=== PATIENT | female | born 2000 | race Hispanic/Latino ===

== ENCOUNTER 2021-10-23 07:12 | Emergency (ER) | payer OTHER, SELFPAY ==
[2021-10-23] MEDS ORDERED: HYDROCODONE/APAP 10/325 TAB ONE (08:43)
[2021-10-23] MEDS ORDERED: KETOROLAC 30 MG/ML INJ ONE (08:43)
--- NOTE | 2021-10-23 09:11 | ER ---
Nurse's Notes [facility] Name: Zeny Brooks Age: 21 yrs Sex: Female : 2000 Arrival Date: 10/23/2021 Time: 07:14 Bed 11 Private MD: Nuria Carmona Diagnosis: Low back pain;Strain of muscle and tendon of back wall of thorax Presentation: 10/23 07:31 Chief complaint: Patient states: having really bad back pains in middle of spine to rib iw cage on left side , denies injury , denies urinary symptoms, pain maribel she sits up straight. Coronavirus screen: At this time, the client does not indicate any symptoms associated with coronavirus-19. Ebola Screen: Patient negative for fever greater than or equal to 101.5 degrees Fahrenheit, and additional compatible Ebola Virus Disease symptoms Patient denies exposure to infectious person. Patient denies travel to an Ebola-affected area in the 21 days before illness onset. No symptoms or risks identified at this time. Initial Sepsis Screen: Does the patient meet any 2 criteria? No. Patient's initial sepsis screen is negative. Does the patient have a suspected source of infection? No. Patient's initial sepsis screen is negative. Risk Assessment: Do you want to hurt yourself or someone else? Patient reports no desire to harm self or others. Onset of symptoms was October 21, 2021. 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 Vital Signs: 07:35 BP 130 / 90; Pulse 83; Resp 16; Temp 97.9; Pulse Ox 98% on R/A; Weight 89.36 kg; Height iw 5 ft. 4 in. (162.56 cm); Pain 5/10; 07:35 Body Mass Index 33.81 (89.36 kg, 162.56 cm) ED Course: 07:14 Patient arrived in ED. as 07:14 Nuria Carmona is Private Physician. as 07:23 Shawn Reyes MD is Attending Physician. johnny 07:33 Triage completed. iw 07:35 Arm band placed on. iw 08:37 Alla Avalos, RN is Primary Nurse. iw 08:49 Lumbar Spine (3 Views) XRAY In Process Unspecified. EDMS 09:11 Nuria Carmona is Referral Physician. johnny Administered Medications: 09:04 Drug: TORadol (ketorolac) 60 mg Route: IM; Site: right deltoid; iw 09:30 Follow up: Response: No adverse reaction iw 09:04 Drug: [place] (HYDROcodone-acetaminophen) 10 mg-325 mg 1 tabs Route: PO; iw 09:30 Follow up: Response: No adverse reaction iw Outcome: 09:11 Discharge ordered by . johnny 09:45 Patient left the ED. iw Signatures: Dispatcher [employer] EDMS Shawn Reyes MD MD cha Martinez, Amelia as Alla Avalos, RN RN iw Corrections: (The following items were deleted from the chart) 07:35 07:33 PMHx: None; iw iw 07:35 07:33 PSHx: brain surgery to releive seizures; iw iw
--- NOTE | 2021-10-23 09:11 | EDPHYS ---
Physician Documentation [facility] Name: Zeny Brooks Age: 21 yrs Sex: Female : 2000 Arrival Date: 10/23/2021 Time: 07:14 Bed 11 Private MD: Nuria Carmona ED Physician Shawn Reyes HPI: 10/23 08:14 This 21 yrs old Female presents to ER via Ambulatory with complaints of Back johnny Pain. 08:14 The patient presents with pain that is acute, with no known mechanism of injury, and johnny decreased range of motion. The symptoms are located in the left low back and left mid back. Onset: The symptoms/episode began/occurred 3 day(s) ago. The pain does not radiate. Associated signs and symptoms: The patient has no apparent associated signs or symptoms. The problem was sustained from unknown cause. Modifying factors: The patient symptoms are alleviated by remaining still. Severity of symptoms: At their worst the symptoms were moderate, in the emergency department the symptoms are unchanged. The patient has not experienced similar symptoms in the past. 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 ROS: 08:14 Constitutional: Negative for fever, chills, and weight loss, Eyes: Negative for injury, johnny pain, redness, and discharge, ENT: Negative for injury, pain, and discharge, Neck: Negative for injury, pain, and swelling, Cardiovascular: Negative for chest pain, palpitations, and edema, Respiratory: Negative for shortness of breath, cough, wheezing, and pleuritic chest pain, Abdomen/GI: Negative for abdominal pain, nausea, vomiting, diarrhea, and constipation, : Negative for injury, bleeding, discharge, and swelling, MS/Extremity: Negative for injury and deformity, Skin: Negative for injury, rash, and discoloration, Neuro: Negative for headache, weakness, numbness, tingling, and seizure, Psych: Negative for depression, anxiety, suicide ideation, homicidal ideation, and hallucinations, Allergy/Immunology: Negative for hives, rash, and allergies, Endocrine: Negative for neck swelling, polydipsia, polyuria, polyphagia, and marked weight changes, Hematologic/Lymphatic: Negative for swollen nodes, abnormal bleeding, and unusual bruising. 08:14 Back: Positive for decreased range of motion, pain at rest, pain with movement, flank pain. Exam: 08:14 Constitutional: This is a well developed, well nourished patient who is awake, alert, johnny and in no acute distress. Head/Face: Normocephalic, atraumatic. Eyes: Pupils equal round and reactive to light, extra-ocular motions intact. Lids and lashes normal. Conjunctiva and sclera are non-icteric and not injected. Cornea within normal limits. Periorbital areas with no swelling, redness, or edema. ENT: Nares patent. No nasal discharge, no septal abnormalities noted. Tympanic membranes are normal and external auditory canals are clear. Oropharynx with no redness, swelling, or masses, exudates, or evidence of obstruction, uvula midline. Mucous membranes moist. Neck: Trachea midline, no thyromegaly or masses palpated, and no cervical lymphadenopathy. Supple, full range of motion without nuchal rigidity, or vertebral point tenderness. No Meningismus. Chest/axilla: Normal chest wall appearance and motion. Nontender with no deformity. No lesions are appreciated. Cardiovascular: Regular rate and rhythm with a normal S1 and S2. No gallops, murmurs, or rubs. Normal PMI, no JVD. No pulse deficits. Respiratory: Lungs have equal breath sounds bilaterally, clear to auscultation and percussion. No rales, rhonchi or wheezes noted. No increased work of breathing, no retractions or nasal flaring. Abdomen/GI: Soft, non-tender, with normal bowel sounds. No distension or tympany. No guarding or rebound. No evidence of tenderness throughout. Pelvic Exam: Normal external genitalia. Speculum exam with closed cervical os, no discharge or bleeding noted. Bimanual exam with normal adnexa, no adnexal or cervical motion tenderness. Normal uterus. Skin: Warm, dry with normal turgor. Normal color with no rashes, no lesions, and no evidence of cellulitis. MS/ Extremity: Pulses equal, no cyanosis. Neurovascular intact. Full, normal range of motion. Neuro: Awake and alert, GCS 15, oriented to person, place, time, and situation. Cranial nerves II-XII grossly intact. Motor strength 5/5 in all extremities. Sensory grossly intact. Cerebellar exam normal. Normal gait. Psych: Awake, alert, with orientation to person, place and time. Behavior, mood, and affect are within normal limits. 08:14 Back: ROM is painful, with rotation to the right, with rotation to the left, with flexion, with extension, normal spinal alignment noted, CVA tenderness, is absent, muscle spasm, is appreciated in the left low back and left mid back. 08:18 Musculoskeletal/extremity: Exam is negative for DVT Exam: No signs of deep vein johnny thrombosis. no pain, no swelling, no tenderness, negative Homans' sign noted on exam, no appreciated bluish discoloration, no erythema, no increased warmth. Vital Signs: 07:35 BP 130 / 90; Pulse 83; Resp 16; Temp 97.9; Pulse Ox 98% on R/A; Weight 89.36 kg; Height iw 5 ft. 4 in. (162.56 cm); Pain 5/10; 07:35 Body Mass Index 33.81 (89.36 kg, 162.56 cm) iw MDM: 07:23 Patient medically screened. johnny 08:02 Patient medically screened. [facility] 08:18 Differential diagnosis: Fatigue Obesity ruptured disc, Scoliosis Ureterolithiasis. Data johnny reviewed: vital signs, nurses notes, lab test result(s), radiologic studies, plain films. Data interpreted: groundwater monitoring technician: not applicable for this patient encounter. rate is 83 beats/min, Pulse oximetry: on room air is 98 %. Test interpretation: by ED physician or midlevel provider: plain radiologic studies. Counseling: I had a detailed discussion with the patient and/or guardian regarding: lab results, radiology results, the need for outpatient follow up, for definitive care, a family practitioner. 10/23 09:18 Order name: Urine Dipstick-Ancillary [facility] 10/23 08:19 Order name: Lumbar Spine (3 Views) XRAY [facility] 10/23 08:11 Order name: Urine Dipstick-Ancillary (obtain specimen); Complete Time: 09:17 [facility] 10/23 08:11 Order name: Urine Test (obtain specimen); Complete Time: 09:16 [facility] Administered Medications: 09:04 Drug: TORadol (ketorolac) 60 mg Route: IM; Site: right deltoid; iw 09:30 Follow up: Response: No adverse reaction iw 09:04 Drug: [place] (HYDROcodone-acetaminophen) 10 mg-325 mg 1 tabs Route: PO; iw 09:30 Follow up: Response: No adverse reaction iw Disposition Summary: 10/23/21 09:11 Discharge Ordered Location: Home johnny Problem: new johnny Symptoms: have improved johnny Condition: Stable johnny Diagnosis - Low back pain johnny - Strain of muscle and tendon of back wall of thorax johnny Followup: johnny - With: - When: 2 - 3 days - Reason: Recheck today's complaints, Continuance of care, Re-evaluation by your physician Discharge Instructions: - Discharge Summary Sheet johnny - Acute Back Pain, Adult johnny - Musculoskeletal Pain johnny Forms: - Medication Reconciliation Form johnny - Thank You Letter johnny - Antibiotic Education johnny - Prescription Opioid Use johnny Prescriptions: - Ibuprofen 600 mg Oral Tablet - take 1 tablet by ORAL route every 6 hours As needed take with food; 30 tablet; johnny Refills: 0, Product Selection Permitted - Cyclobenzaprine 5 mg Oral Tablet - take 1 tablet by ORAL route 3 times per day As needed; 15 tablet; Refills: 0, johnny Product Selection Permitted - Tylenol-Codeine #3 300 mg-30 mg Oral - take 2 tablet by ORAL route every 6 hours; 20 tablet; Refills: 0, Product [facility] Selection Permitted Signatures: Dispatcher [employer] Shawn Warren MD MD cha Williams, Irene, RN RN iw Corrections: (The following items were deleted from the chart) 07:35 07:33 PMHx: None; iw iw 07:35 07:33 PSHx: brain surgery to releive seizures; iw iw
[2021-10-23 09:18] LABS: Urine Blood Negative (Negative); Urine Glucose Negative (Negative); Urine Protein Negative (Negative); Urine Specific Gravity 1.025 (1.005-1.030)
--- NOTE | 2021-10-23 09:42 | RAD REPORT ---
EXAM DESCRIPTION: RAD - Lumbar Spine 3 Views - 10/23/2021 8:48 am CLINICAL HISTORY: PAIN COMPARISON: No comparisons FINDINGS: A three-view lumbar spine examination was performed. Lumbar bodies are normal in height and alignment. No fracture or acute bony process seen. No disc spa ce narrowing. No other significant findings. No pars defects identified. No SI joint abnormality. IMPRESSION: Negative Lumbar Spine examination. Concerns for disc herniation, central canal abnormality or occult bone process could be addressed wit h follow-up outpatient MRI lumbar spine exam.
[2021-10-23 09:51] VITALS: BP 130/90; TEMP 97.9; O2SAT 98
== END 2021-10-23 09:45 | disposition home or self-care (01) ==
LOC: ER 07:12
DX: S29.012A Strain of muscle and tendon of back wall of thorax, initial encounter (principal); Z88.0 Allergy status to penicillin
CPT/HCPCS: 72100; 81003; 96372; 99283

== ENCOUNTER 2022-02-13 23:39 | Emergency (ER) | payer OTHER, SELFPAY ==
--- NOTE | 2022-02-14 00:58 | ER ---
Nurse's Notes [facility] Name: Zeny Brooks Age: 21 yrs Sex: Female : 2000 Arrival Date: 02/13/2022 Time: 23:43 Bed Waiting Private MD: Diagnosis: Acute upper respiratory infection, unspecified Presentation: 02/14 00:06 Chief complaint: Patient states: I got sent home from work because of my allergies. bm7 They said they want me tested for COVID because one of the other girls at work has been out sick with it. Coronavirus screen: Client presents with at least one sign or symptom that may indicate coronavirus-19. Standard/surgical mask placed on the client. Ebola Screen: No symptoms or risks identified at this time. Initial Sepsis Screen: Does the patient meet any 2 criteria? No. Patient's initial sepsis screen is negative. Does the patient have a suspected source of infection? No. Patient's initial sepsis screen is negative. Risk Assessment: Do you want to hurt yourself or someone else? Patient reports no desire to harm self or others. Onset of symptoms is unknown. 00:06 Method Of Arrival: Ambulatory 7 00:06 Acuity: SANDRA 4 bm7 Triage Assessment: 00:07 General: Appears in no apparent distress. comfortable, Behavior is calm, cooperative, bm7 appropriate for age. Pain: Denies pain. EENT: Reports nasal congestion nasal discharge. Neuro: No deficits noted. Cardiovascular: No deficits noted. Respiratory: Reports cough that is pain with cough Denies shortness of breath. GI: No deficits noted. No signs and/or symptoms were reported involving the gastrointestinal system. : No deficits noted. No signs and/or symptoms were reported regarding the genitourinary system. Derm: No deficits noted. No signs and/or symptoms reported regarding the dermatologic system. Parent/caregiver reports the patient having. Musculoskeletal: No deficits noted. No signs and/or symptoms reported regarding the musculoskeletal system. 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 - Social history:: Smoking status: Patient denies any tobacco usage or history of. Screenin:06 Abuse screen: Denies threats or abuse. Nutritional screening: No deficits noted. bb Tuberculosis screening: No symptoms or risk factors identified. Fall Risk None identified. Assessment: 01:06 General: Appears in no apparent distress. uncomfortable, Behavior is calm, cooperative. bb Pain: Complains of pain in chest Pain does not radiate. Pain began gradually. Neuro: Level of Consciousness is awake, alert, obeys commands, Oriented to person, place, time, situation. Cardiovascular: Capillary refill < 3 seconds Patient's skin is warm and dry. Respiratory: Respiratory effort is even, unlabored, Respiratory pattern is regular. GI: No signs and/or symptoms were reported involving the gastrointestinal system. EENT: Reports nasal congestion nasal discharge. Musculoskeletal: Circulation, motion, and sensation intact. Vital Signs: 00:06 BP 125 / 97; Pulse 81; Resp 16; Temp 98.1(TE); Pulse Ox 100% on R/A; Weight 86.18 kg bm7 (R); Height 5 ft. 4 in. (162.56 cm); Pain 3; 00:06 Body Mass Index 32.61 (86.18 kg, 162.56 cm) bm7 ED Course: 02/13 23:43 Patient arrived in ED. ja2 23:51 Alisa Nugent [facility]-C [facility]. snw 23:51 Eloy Shipley MD is Attending Physician. snw 02/14 00:07 Triage completed. bm7 00:07 Arm band placed on right wrist. bm7 01:06 Patient has correct armband on for positive identification. pt discharged from [facility]. bb 01:06 No provider procedures requiring assistance completed. Patient did not have IV access bb during this emergency room visit. Patient maintains SpO2 saturation greater than 95% on room air. Administered Medications: No medications were administered Medication: 01:06 VIS not applicable for this client. bb Outcome: 00:58 Discharge ordered by . snw 01:06 Discharged to home ambulatory. bb 01:06 Condition: stable 01:06 Discharge instructions given to patient, Instructed on discharge instructions, follow up and referral plans. medication usage, Demonstrated understanding of instructions, follow-up care, medications, Prescriptions given X 3. 01:08 Patient left the ED. bb Signatures: Alisa Nugent, MELVIN-C CONSUMER ANALYST-Csnw Daniella Rao RN RN bb Yolanda Tran RN RN bm7 Eli Coleman
--- NOTE | 2022-02-14 00:58 | EDPHYS ---
Physician Documentation [facility] Name: Zeny Brooks Age: 21 yrs Sex: Female : 2000 Arrival Date: 02/13/2022 Time: 23:43 Bed Waiting Private MD: ED Physician Eloy Shipley HPI: 02/14 01:00 This 21 yrs old Female presents to ER via Ambulatory with complaints of Runny snw Nose, Chest Pain, Ear Pain. 01:00 The patient or guardian reports cough, flu symptoms, low-grade fever, myalgias. Onset: snw The symptoms/episode began/occurred suddenly, today. Severity of symptoms: At their worst the symptoms were mild. Associated signs and symptoms: Pertinent positives: earache, rhinorrhea, sore throat. The patient has not experienced similar symptoms in the past. The patient has not recently seen a physician. Co-worker with similar s/s tested positive for CoVid and pt was sent home from work. 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 - Social history:: Smoking status: Patient denies any tobacco usage or history of. ROS: 01:16 Eyes: Negative for injury, pain, redness, and discharge. snw 01:16 Neck: Negative for injury, pain, and swelling, Cardiovascular: Negative for chest pain, palpitations, and edema, Respiratory: Negative for shortness of breath, cough, wheezing, and pleuritic chest pain, Abdomen/GI: Negative for abdominal pain, nausea, vomiting, diarrhea, and constipation, Back: Negative for injury and pain, : Negative for injury, bleeding, discharge, and swelling, MS/Extremity: Negative for injury and deformity, Skin: Negative for injury, rash, and discoloration, Neuro: Negative for headache, weakness, numbness, tingling, and seizure, Psych: Negative for depression, anxiety, suicide ideation, homicidal ideation, and hallucinations. 01:16 Constitutional: Positive for malaise. 01:16 ENT: Positive for hoarseness, nasal discharge, sinus congestion. Exam: 01:16 Constitutional: This is a well developed, well nourished patient who is awake, alert, snw and in no acute distress. Head/Face: Normocephalic, atraumatic. Eyes: Pupils equal round and reactive to light, extra-ocular motions intact. Lids and lashes normal. Conjunctiva and sclera are non-icteric and not injected. Cornea within normal limits. Periorbital areas with no swelling, redness, or edema. 01:16 Neck: Trachea midline, no thyromegaly or masses palpated, and no cervical lymphadenopathy. Supple, full range of motion without nuchal rigidity, or vertebral point tenderness. No Meningismus. Chest/axilla: Normal chest wall appearance and motion. Nontender with no deformity. No lesions are appreciated. Cardiovascular: Regular rate and rhythm with a normal S1 and S2. No gallops, murmurs, or rubs. Normal PMI, no JVD. No pulse deficits. Respiratory: Lungs have equal breath sounds bilaterally, clear to auscultation and percussion. No rales, rhonchi or wheezes noted. No increased work of breathing, no retractions or nasal flaring. Abdomen/GI: Soft, non-tender, with normal bowel sounds. No distension or tympany. No guarding or rebound. No evidence of tenderness throughout. Back: No spinal tenderness. No costovertebral tenderness. Full range of motion. Skin: Warm, dry with normal turgor. Normal color with no rashes, no lesions, and no evidence of cellulitis. MS/ Extremity: Pulses equal, no cyanosis. Neurovascular intact. Full, normal range of motion. Neuro: Awake and alert, GCS 15, oriented to person, place, time, and situation. Cranial nerves II-XII grossly intact. Motor strength 5/5 in all extremities. Sensory grossly intact. Cerebellar exam normal. Normal gait. Psych: Awake, alert, with orientation to person, place and time. Behavior, mood, and affect are within normal limits. 01:16 ENT: TM's: erythema, that is mild, bilaterally, Nose: Nasal mucosa: edematous, nasal drainage, that is minimal, and is seen coming from both nares, that is clear, Mouth: no acute changes, Posterior pharynx: erythema, that is mild. Vital Signs: 00:06 BP 125 / 97; Pulse 81; Resp 16; Temp 98.1(TE); Pulse Ox 100% on R/A; Weight 86.18 kg bm7 (R); Height 5 ft. 4 in. (162.56 cm); Pain 3/10; 00:06 Body Mass Index 32.61 (86.18 kg, 162.56 cm) bm7 MDM: 00:06 Patient medically screened. snw 00:58 Data reviewed: vital signs, nurses notes. Data interpreted: Pulse oximetry: on room air snw is 100 %. Interpretation: normal. Counseling: I had a detailed discussion with the patient and/or guardian regarding: the historical points, exam findings, and any diagnostic results supporting the discharge/admit diagnosis, the presence of at least one elevated blood pressure reading (>120/80) during this emergency department visit, lab results, the need for outpatient follow up, to return to the emergency department if symptoms worsen or persist or if there are any questions or concerns that arise at home. Special discussion: Based on the history and exam findings, there is no indication for further emergent testing or inpatient evaluation. I discussed with the patient/guardian the need to see the primary care provider for further evaluation of the symptoms. 02/14 00:09 Order name: SARS-COV-2 RT PCR (Document "Date of Onset" if Symptomatic); Complete Time: snw 00:57 02/14 00:09 Order name: Flu; Complete Time: 00:41 snw Administered Medications: No medications were administered Disposition: 06:09 Co-signature as Attending Physician, Eloy Shipley MD. rn Disposition Summary: 02/14/22 00:58 Discharge Ordered Location: Home snw Condition: Stable snw Diagnosis - Acute upper respiratory infection, unspecified snw Followup: snw - With: Emergency Department - When: As needed - Reason: Worsening of condition Followup: snw - With: Private Physician - When: 2 - 3 days - Reason: Recheck today's complaints, Continuance of care, Re-evaluation by your physician Discharge Instructions: - Discharge Summary Sheet snw - Upper Respiratory Infection, Adult snw Forms: - Medication Reconciliation Form snw - Thank You Letter snw - Antibiotic Education snw - Prescription Opioid Use snw - Work release form ds4 Prescriptions: - Pepcid 20 mg Oral Tablet - take 1 tablet by ORAL route every 12 hours for 5 days; 10 tablet; Refills: 0, snw Product Selection Permitted - Zyrtec 10 mg Oral Tablet - take 1 tablet by ORAL route once daily As needed; 20 tablet; Refills: 0, snw Product Selection Permitted - Prednisone 20 mg Oral Tablet - take 2 tablets by ORAL route once daily for 5 days; 10 tablet; Refills: 0, snw Product Selection Permitted Signatures: Dispatcher [employer] EDAlisa Crooks, MELVIN-C MEDIA RELATIONS ASSOCIATE-Csnw Eloy Shipley MD MD rn Yolanda Tran RN RN bm7
[2022-02-14 07:23] VITALS: BP 125/97; TEMP 98.1; O2SAT 100
== END 2022-02-14 01:08 | disposition home or self-care (01) ==
LOC: ER 23:39
DX: J06.9 Acute upper respiratory infection, unspecified (principal); Z20.822 Contact with and (suspected) exposure to COVID-19; Z88.0 Allergy status to penicillin
CPT/HCPCS: 87804 ×2; 99284; U0003